=== PATIENT | female | born 1955 | race Caucasian/White ===

== ENCOUNTER 2016-08-02 11:00 | Emergency (ER) | payer OTHER ==
[~2016-08-02] VITALS: Ht 154.9 cm; Wt 70.0 kg
[2016-08-02 11:04] VITALS: BP 221/109; PULSE 79; RESP 12; TEMP 97.9; O2SAT 99
--- NOTE | 2016-08-02 12:24 | PD ---
HPI Chief Complaint: Hypertension Time Seen by Provider: 12:15 Travel History International Travel<30 days: No Contact w/Intl Traveler<30days: No Traveled to known affect area: No History of Present Illness HPI 61-year-old female presents to the emergency department for evaluation of visual changes that started 2 weeks ago, intermittent nosebleeds for 1 year, hypertension. Patient states that starting 2 weeks ago, she has had 3 episodes of vision changes last approximately 10 minutes. She states that her vision will go blurry and she will see half of the images she is looking at. She states she gets anxious and the episodes last about 10 minutes and her vision will resume to normal. She also reports intermittent flashes of lights in the left eye. Patient reports headache, 7/10. She denies this being the worst headache of her life. She does report similar headaches in the past. Patient also states that she wakes up with blood in her nostrils. She states this has been ongoing for 1 year in the mornings. Patient denies any visual changes at this moment. Patient reports hypertension hyperlipidemia, but is not currently on any medications. She denies any chest pain or shortness of breath. No abdominal pain. No nausea or vomiting. No weakness or syncope. PFSH Past Medical History Cardiovascular Problems: Yes (HTN) ?: Not Social History Alcohol Use: No Tobacco Use: No Substance Use: No Allergies-Medications (Allergen,Severity, Reaction): Coded Allergies: No Known Allergies (Unverified , 08/02/16) Reported Meds & Prescriptions Reported Meds & Active Scripts Active No Active Prescriptions or Reported Medications Review of Systems Except as stated in HPI: all other systems reviewed are Neg Physical Exam Narrative GENERAL: Well-developed well-nourished female patient, ambulatory. Afebrile. SKIN: Warm and dry. HEAD: Normocephalic. Atraumatic. EYES: No scleral icterus. No injection or drainage. NECK: Supple, trachea midline. No JVD or lymphadenopathy. CARDIOVASCULAR: Regular rate and rhythm without murmurs, gallops, or rubs. RESPIRATORY: Breath sounds equal bilaterally. No accessory muscle use. Lungs sounds are clear to auscultation. GASTROINTESTINAL: Abdomen soft, non-tender, nondistended. MUSCULOSKELETAL: No cyanosis, or edema. Bilateral upper and lower extremity strength 5/5. All extremities are neurovascularly intact. BACK: Nontender without obvious deformity. No CVA tenderness. Data Data Last Documented VS Vital Signs Date Time Temp Pulse Resp B/P Pulse Ox O2 Delivery O2 Flow Rate FiO2 08/02/16 15:09 49 16 167/74 98 Room Air 08/02/16 11:04 97.9 Orders Electrocardiogram (08/02/16 ) Complete Blood Count With Diff (08/02/16 12:14) Basic Metabolic Panel (Bmp) (08/02/16 12:14) Prothrombin Time / Inr (Pt) (08/02/16 12:24) Act Partial Throm Time (Ptt) (08/02/16 12:24) Ct Brain W/O Iv Contrast(Rout) (08/02/16 12:24) Iv Access Insert/Monitor (08/02/16 13:54) Ecg Monitoring (08/02/16 13:54) Hydralazine Inj (Apresoline Inj) (08/02/16 14:00) Dexamethasone Inj (Decadron Inj) (08/02/16 14:00) Metoclopramide Inj (Reglan Inj) (08/02/16 14:00) Diphenhydramine Inj (Benadryl Inj) (08/02/16 14:00) Labs Laboratory Tests Test 08/02/16 12:30 White Blood Count 9.8 TH/MM3 Red Blood Count 5.00 MIL/MM3 Hemoglobin 13.0 GM/DL Hematocrit 39.1 % Mean Corpuscular Volume 78.2 FL Mean Corpuscular Hemoglobin 26.0 PG Mean Corpuscular Hemoglobin 33.3 % Concent Red Cell Distribution Width 14.2 % Platelet Count 299 TH/MM3 Mean Platelet Volume 8.0 FL Neutrophils (%) (Auto) 48.8 % Lymphocytes (%) (Auto) 41.6 % Monocytes (%) (Auto) 6.6 % Eosinophils (%) (Auto) 2.4 % Basophils (%) (Auto) 0.6 % Neutrophils # (Auto) 4.8 TH/MM3 Lymphocytes # (Auto) 4.1 TH/MM3 Monocytes # (Auto) 0.6 TH/MM3 Eosinophils # (Auto) 0.2 TH/MM3 Basophils # (Auto) 0.1 TH/MM3 CBC Comment DIFF FINAL Differential Comment Prothrombin Time 10.5 SEC Prothromb Time International 1.0 RATIO Ratio Activated Partial 28.5 SEC Thromboplast Time Sodium Level 137 MEQ/L Potassium Level 4.6 MEQ/L Chloride Level 102 MEQ/L Carbon Dioxide Level 28.4 MEQ/L Anion Gap 7 MEQ/L Blood Urea Nitrogen 13 MG/DL Creatinine 0.77 MG/DL Estimat Glomerular Filtration 77 ML/MIN Rate Random Glucose 101 MG/DL Calcium Level 9.1 MG/DL MDM Medical Decision Making Medical Screen Exam Complete: Yes Emergency Medical Condition: Yes Medical Record Reviewed: Yes Differential Diagnosis TIA versus hypertension versus migraine headache vs. seizure Narrative Course 61-year-old female presents to the emergency department for evaluation of 3 episodes of vision loss/dizziness that occurs binocular over the past 2 weeks as well as hypertension and nosebleeds. EKG, CBC, BMP, PTT, PTT/INR, CT of the brain are ordered and pending. Workup is initiated in triage. Patient will be moved to medical pod for further evaluation and disposition. Scripts No Active Prescriptions or Reported Meds Aggie Pitt Aug 02, 2016 12:24
[2016-08-02 12:46] LABS: AUTOMATED NEUTROPHIL # 4.8 TH/MM3 (1.8-7.7); BASOPHIL # 0.1 TH/MM3 (0-0.2); BASOPHIL % 0.6 % (0.0-2.0); EOSINOPHIL # 0.2 TH/MM3 (0-0.4); EOSINOPHIL % 2.4 % (0.0-4.0); HEMATOCRIT 39.1 % (35.0-46.0); HEMO FLAGS DIFF FINAL; LYMPH % 41.6 % (9.0-44.0); LYMPHOCYTE # 4.1 TH/MM3 (1.0-4.8); MEAN CELL VOLUME 78.2 FL (80.0-100.0); MEAN CORPUSCULAR HGB CONC 33.3 % (32.0-36.0); MONO % 6.6 % (0.0-8.0); NEUT % 48.8 % (16.0-70.0); PLATELET COUNT 299 TH/MM3 (150-450); RED CELL DISTRIBUTION WIDTH 14.2 % (11.6-17.2); WHITE BLOOD COUNT 9.8 TH/MM3 (4.0-11.0)
[2016-08-02 12:57] LABS: APTT (PATIENT) 28.5 SEC (24.3-30.1); PROTHROMBIN TIME - PATIENT 10.5 SEC (9.8-11.6)
[2016-08-02 13:27] LABS: BICARBONATE 28.4 MEQ/L (21.0-32.0); POTASSIUM 4.6 MEQ/L (3.5-5.1)
[2016-08-02 13:58] VITALS: BP 202/112; PULSE 66; RESP 15; O2SAT 99
[2016-08-02] MEDS ORDERED: DEXAMETHASONE SOD PHOS 20 MG/5 ML VIAL IV PUSH ONE (14:00)
[2016-08-02] MEDS: METOCLOPRAMIDE HCL 10 MG/2 ML VIAL IV PUSH ONE ×2 (14:00→14:41)
[2016-08-02] MEDS ORDERED: hydrALAZINE HCL 20 MG/ML VIAL IV PUSH ONE (14:00)
[2016-08-02] MEDS ORDERED: diphenhydrAMINE HCL 50 MG/ML VIAL IV PUSH ONE (14:00)
--- NOTE | 2016-08-02 14:22 | RADRPT ---
EXAM DATE/TIME: 08/02/2016 13:58 [facility] COMPARISON: No previous studies available for comparison. INDICATIONS : Elevated blood pressure, headache, vision change episodes over 2 weeks RADIATION DOSE: 56.77 CTDIvol (mGy) MEDICAL HISTORY : Cardiovascular disease. Hypertension. SURGICAL HISTORY : None. ENCOUNTER: Initial ACUITY: 2 weeks PAIN SCALE: 2/10 LOCATION: cranial TECHNIQUE: Multiple contiguous axial images were obtained of the head. Using automated exposure control and adj ustment of the mA and/or kV according to patient size, radiation dose was kept as low as reasonably a chievable to obtain optimal diagnostic quality images. FINDINGS: CEREBRUM: The ventricles are normal for age. No evidence of midline shift, mass lesion, hemorrhage or acute in farction. No extra-axial fluid collections are seen. POSTERIOR FOSSA: The cerebellum and brainstem are intact. The 4th ventricle is midline. The cerebellopontine angle i s unremarkable. EXTRACRANIAL: The visualized portion of the orbits is intact. SKULL: The calvaria is intact. No evidence of skull fracture. CONCLUSION: No acute disease. Zia Brumfield MD on August 02, 2016 at 14:19 Board Certified Radiologist. This report was verified electronically.
[2016-08-02 15:09] VITALS: BP 167/74; PULSE 49; RESP 16; O2SAT 98
--- NOTE | 2016-08-02 15:33 | PD ---
Physical Exam Date Seen by Provider: Aug 02, 2016 Data Data Last Documented VS Vital Signs Date Time Temp Pulse Resp B/P Pulse Ox O2 Delivery O2 Flow Rate FiO2 08/02/16 17:45 65 16 153/77 Room Air 08/02/16 15:36 98.4 98 08/02/16 15:09 98 Orders Electrocardiogram (08/02/16 ) Complete Blood Count With Diff (08/02/16 12:14) Basic Metabolic Panel (Bmp) (08/02/16 12:14) Prothrombin Time / Inr (Pt) (08/02/16 12:24) Act Partial Throm Time (Ptt) (08/02/16 12:24) Ct Brain W/O Iv Contrast(Rout) (08/02/16 12:24) Iv Access Insert/Monitor (08/02/16 13:54) Ecg Monitoring (08/02/16 13:54) Hydralazine Inj (Apresoline Inj) (08/02/16 14:00) Dexamethasone Inj (Decadron Inj) (08/02/16 14:00) Metoclopramide Inj (Reglan Inj) (08/02/16 14:00) Diphenhydramine Inj (Benadryl Inj) (08/02/16 14:00) Ketorolac Inj (Toradol Inj) (08/02/16 16:00) Mandatory Outpatient Referral (08/02/16 16:19) Labs Laboratory Tests Test 08/02/16 12:30 White Blood Count 9.8 TH/MM3 Red Blood Count 5.00 MIL/MM3 Hemoglobin 13.0 GM/DL Hematocrit 39.1 % Mean Corpuscular Volume 78.2 FL Mean Corpuscular Hemoglobin 26.0 PG Mean Corpuscular Hemoglobin 33.3 % Concent Red Cell Distribution Width 14.2 % Platelet Count 299 TH/MM3 Mean Platelet Volume 8.0 FL Neutrophils (%) (Auto) 48.8 % Lymphocytes (%) (Auto) 41.6 % Monocytes (%) (Auto) 6.6 % Eosinophils (%) (Auto) 2.4 % Basophils (%) (Auto) 0.6 % Neutrophils # (Auto) 4.8 TH/MM3 Lymphocytes # (Auto) 4.1 TH/MM3 Monocytes # (Auto) 0.6 TH/MM3 Eosinophils # (Auto) 0.2 TH/MM3 Basophils # (Auto) 0.1 TH/MM3 CBC Comment DIFF FINAL Differential Comment Prothrombin Time 10.5 SEC Prothromb Time International 1.0 RATIO Ratio Activated Partial 28.5 SEC Thromboplast Time Sodium Level 137 MEQ/L Potassium Level 4.6 MEQ/L Chloride Level 102 MEQ/L Carbon Dioxide Level 28.4 MEQ/L Anion Gap 7 MEQ/L Blood Urea Nitrogen 13 MG/DL Creatinine 0.77 MG/DL Estimat Glomerular Filtration 77 ML/MIN Rate Random Glucose 101 MG/DL Calcium Level 9.1 MG/DL [facility] Medical Record Reviewed: Yes Supervised Visit with SHERIN: Yes Interpretation(s) EKG at 1234: NSR at 65bpm, qt/qtc: 414/426, no acute ST-T wave changes CBC & BMP Diagram 08/02/16 12:[address] 08/02/16 1224 Signed Impressions: Service Date/Time: Tuesday, August 02, 2016 13:58 - CONCLUSION: No acute disease. Zia Brumfield MD Differential Diagnosis Accelerated hypertension, hypertensive urgency, cephalgia, TIA Narrative Course Patient is a 61-year-old female who presents to emergency room with complaints of headache, intermittent vision changes and that have been intermittent over the past 2 weeks. Patient reports that for the past 2 weeks, she's had a diffuse headache, it's that while at work, she has had episodes of tunnel vision. Patient reports that she would have episodes of blurry vision and can see half the images and not full images. Patient reports that symptoms lasted for about 10 minutes and then resolve on its own. Patient reports that symptoms do not occur daily but have been more persistent. Reports that she was concerned as she had a nosebleed last night. Reports that this morning, she woke up and had a headache and reports that she did not feel well. Patient's blood pressure upon arrival to the emergency room was 221/109. Patient reports history of hypertension, reports that she is supposed be on antihypertensives, reports that she stopped all her medications 3 years ago as they made her feel dizzy and gave her vertiginous symptoms. Patient reports that she has not follow-up with a primary care doctor since then as she has lost her insurance and had no one to provide her with medications for hypertension. GENERAL: mild distress SKIN: Warm and dry. HEAD: Atraumatic. Normocephalic. EYES: Pupils equal and round. No scleral icterus. No injection or drainage. ENT: No nasal bleeding or discharge. Mucous membranes pink and moist. NECK: Trachea midline. No JVD. CARDIOVASCULAR: Regular rate and rhythm. No murmur appreciated. RESPIRATORY: No accessory muscle use. Clear to auscultation. Breath sounds equal bilaterally. GASTROINTESTINAL: Abdomen soft, non-tender, nondistended. Hepatic and splenic margins not palpable. MUSCULOSKELETAL: No obvious deformities. No clubbing. No cyanosis. No edema. NEUROLOGICAL: Awake and alert. No obvious cranial nerve deficits. Motor grossly within normal limits. Normal speech. Cranial nerves to 12 grossly intact with no obvious deficits. PSYCHIATRIC: Appropriate mood and affect; insight and judgment normal. Patient with no cranial nerve deficits. Discussed with patient that her headache be secondary to hypertensive urgency versus migraine headache. Patient reports that she has had headaches similar to this in the past, symptoms usually resolve with Aleve, patient did not take any medications today for her headache. Plan to obtain labs as well as EKG and CAT scan of her head. She patient's blood pressure as well as her headache. Plan to reevaluate patient after treatment. labs ordered to evaluate for end organ damage EKG: Normal sinus rhythm at 65 bpm, there are no arrhythmias or abnormal ST or T -wave changes on EKG. CBC WBC 9.8 Hemoglobin 13 Hematocrit 39.1 Platelets 299 BMP Sodium 137 Chloride 102 Potassium 4.6 BUN [address] of the head with no acute disease. after hydralazine 10mg IV, pt's BP now 167/74 - pt with near resolution of symptoms at this time. I did review all labs and studies with patient in detail pt does not have pcp or insurance, will have financial advisors talk to patient , mandatory referral placed for primary care doctor for blood pressure follow up and re-eval as i will start her on [facility] today. Patient understands importance of following up. Diagnosis Primary Impression: Hypertension Qualified Code: I10 - Essential hypertension Additional Impression: Cephalgia Qualified Code: R51 - Nonintractable headache, unspecified chronicity pattern , unspecified headache type Patient Instructions: General Instructions Departure Forms: Tests/Procedures, Work Release Enter return to work date: Aug 04, 2016 Additional Instruction: Please follow-up with your primary care doctor as soon as possible Please follow-up in the emergency room in 24 hours for blood pressure recheck Please return to emergency room if symptoms return or progress Scripts Amlodipine (Norvasc)5 Mg Tab5 Mg PO DAILY #30 TAB Ref 0 Prov:Alexia Stratton DO 08/02/16 Disposition: 01 DISCHARGE HOME Condition: Stable Alexia Stratton DO Aug 02, 2016 15:33
[2016-08-02 15:36] VITALS: BP 141/69; PULSE 54; RESP 20; TEMP 98.4
[2016-08-02] MEDS ORDERED: KETOROLAC TROMETHAMINE 30 MG/ML (IVP) VIAL IV PUSH ONE (16:00)
[2016-08-02] MEDS ORDERED: AMLO5 PO (16:28)
--- NOTE | 2016-08-02 16:54 | EKG ---
Date Performed: 08/02/2016 Time Performed: 12:34:35 PTAGE: 61 years EKG: Sinus rhythm WITH SINUS ARRHYTHMIA MARKED LEFT AXIS DEVIATION RSR prime in leads V1 and V2. ABNORMAL ECG NO PREVIOUS TRACING DOCTOR: Osvaldo Young Interpretating Date/Time 08/02/2016 16:52:59
[2016-08-02 17:45] VITALS: BP 153/77; PULSE 65; RESP 16
== END 2016-08-02 20:18 | disposition home or self-care (01) ==
LOC: NEPE 11:00
DX: I10 Essential (primary) hypertension (principal); R51 Headache; E78.5 Hyperlipidemia, unspecified; R94.31 Abnormal electrocardiogram [ECG] [EKG]
CPT/HCPCS: 70450; 80048; 85025; 85610; 85730; 93005; 96374; 96375; 99284; J0360; J1100; J1200; J1885; J2765

== ENCOUNTER → 2016-09-11 | Day surgery (SDC) | payer OTHER ==
[~2016-09-11] MED LIST: AMLO5 PO; LACTATED RINGER'S 1000 ML INJ 1,000 ML ONE; PROPOFOL 200 MG/20 ML AMP IV ONE
--- NOTE | 2016-09-11 12:18 | GIPROC ---
[facility] [address] [place], [address] COLONOSCOPY PROCEDURE REPORT EXAM DATE: 09/11/2016 PATIENT NAME: Rebecca Fajardo MR #: [id number] BIRTHDATE: 1955 ENDOSCOPIST: Rodrick Cole MD ORDER #: [id number] PLUG PASTER: Omayra Delacruz RN STATUS: outpatient INDICATIONS: The patient is a 61 yr old female here for a colonoscopy due to average risk patient for colon cancer PROCEDURE PERFORMED: Colonoscopy, screening MEDICATIONS: None and Per Anesthesia. PREP QUALITY: good ESTIMATED BLOOD LOSS: None CONSENT: The patient understands the risks and benefits of the procedure and understands that these risks include, but are not limited to: sedation, allergic reaction, infection, perforation and/or bleeding. Alternative means of evaluation and treatment include, among others: physical exam, x-rays, and/or surgical intervention. The patient elects to proceed with this endoscopic procedure. medical equipment was checked for proper function. Hand hygiene and appropriate measures for infection prevention was taken. After the risks, benefits and alternatives of the procedure were thoroughly explained, Informed consent was verified, confirmed and timeout was successfully executed by the treatment team. A digital exam revealed no abnormalities of the rectum The [id number] ([id number]) endoscope was introduced through the anus and advanced to the cecum, which was identified by both the appendix and ileocecal valve. The instrument was then slowly withdrawn as the colon was fully examined. COLON FINDINGS: Mild diverticulosis was noted in the sigmoid colon. The colon mucosa was otherwise normal. Retroflexed views revealed no abnormalities The scope was then completely withdrawn from the patient and the procedure terminated. PROCEDURE WITHDRAWAL TIME:7.1minutes ADVERSE EVENTS: There were no complications. IMPRESSIONS: 1. Mild diverticulosis was noted in the sigmoid colon 2. The colon mucosa was otherwise normal 3. Retroflexed views revealed no abnormalities 4. Revealed no abnormalities of the rectum RECOMMENDATIONS: 1. High fiber diet 2. Yearly hemoccult 3. Follow-up: GI Clinic PRN RECALL: Return 10 years Colonoscopy Rodrick Cole MD eSigned: Rodrick Cole MD 09/11/2016 12:18 PM cc:
== END | disposition home or self-care (01) ==
LOC: ESDC 10:16
PROVIDERS: ATTEND Internal Medicine Gastroenterology
DX: Z12.11 Encounter for screening for malignant neoplasm of colon (principal)
CPT/HCPCS: 00810; 45378; J7120